=== PATIENT | male | born 1985 | race African-American/Black ===

== ENCOUNTER 2018-04-15 12:34 | Emergency (ER) | payer OTHER ==
[~2018-04-15] VITALS: Ht 188 cm; Wt 78.6 kg
--- NOTE | 2018-04-15 13:36 | REP ---
CT Head without contrast HISTORY: Trauma COMPARISON: 07/10/2014 There is no intraparenchymal hemorrhage, acute infarct, mass or midline shift. The ventricular system is normal in appearance. There is no extra cerebral collection. There is no fracture. The visualized sinuses are clear. IMPRESSION: There is no intracranial lesion. Electronically Signed by Dung Barrow MD 04/15/2018 01:28 P
--- NOTE | 2018-04-15 13:40 | REP ---
CT cervical spine without contrast HISTORY: Trauma COMPARISON: None There is no acute fracture or subluxation. Disc bulges are present at the C3-4 and C4-5 levels. A disc bulge with associated osteophyte formation is present at the C5-6 level. There is minimal narrowing of the spinal canal. Uncinate process hypertrophy is present at the C5-6 level. This produces mild narrowing of the C5 neural foramina. The remaining neural foramina are patent. The C5-6 intervertebral disc is decreased in height consistent with disc degeneration. IMPRESSION: 1. There is no acute fracture or subluxation. 2. There is cervical spondylosis at the C3-4 through C5-6 levels. Electronically Signed by Dung Barrow MD 04/15/2018 01:31 P
[2018-04-15] MEDS ORDERED: REGL10TA6 PO (13:42)
[2018-04-15 13:54] VITALS: BP 151/84
== END 2018-04-15 13:56 | disposition home or self-care (01) ==
LOC: M ED 12:34
DX: S06.0X0A Concussion without loss of consciousness, initial encounter (principal); W50.0XXA Accidental hit or strike by another person, initial encounter; Y92.89 Other specified places as the place of occurrence of the external cause; Y93.71 Activity, boxing; Y99.9 Unspecified external cause status; M47.812 Spondylosis without myelopathy or radiculopathy, cervical region

== ENCOUNTER 2018-08-01 14:10 | Emergency (ER) | payer OTHER ==
[~2018-08-01] VITALS: Ht 188 cm; Wt 81.8 kg
[~2018-08-01 14:10] MED LIST: REGL10TA6 PO
[2018-08-01 15:29] LABS: BASO % 0.2 % (0.0-1.0); EOS % 0.1 % (0.0-3.0); HEMOGLOBIN 14.3 g/dl (13.5-17.5); LYMPH # 2.2 10^3/uL (1.5-4.5); LYMPH % 12.1 % (24.0-44.0); MEAN CORPUSCULAR HEMOGLOBIN 29.2 pg (27.0-33.0); MEAN CORPUSCULAR HGB CONC 33.3 g/dl (32.0-36.5); MEAN CORPUSCULAR VOLUME 87.8 fl (80.0-96.0); MONO # 0.8 10^3/uL (0.0-0.8); MONO % 4.5 % (0.0-5.0); NEUTROPHILS % 82.6 % (36.0-66.0); PLATELET COUNT, AUTOMATED 275 10^3/uL (150-450); WHITE BLOOD COUNT 18.1 10^3/uL (4.0-10.0)
[2018-08-01] MEDS ORDERED: NS 1,000 ML IV ONE (15:30)
[2018-08-01] MEDS ORDERED: ONDANSETRON 4MG/2ML VIAL (J2405) IV ONE (15:30)
[2018-08-01 15:41] LABS: ALBUMIN 4.5 GM/DL (3.2-5.2); ALT/SGPT 38 U/L (12-78); BILIRUBIN,DIRECT 0.4 MG/DL (0.0-0.2); BILIRUBIN,TOTAL 1.5 MG/DL (0.2-1.0); BLOOD UREA NITROGEN 18 MG/DL (7-18); CALCIUM LEVEL 9.7 MG/DL (8.5-10.1); CARBON DIOXIDE LEVEL 25 MEQ/L (21-32); CHLORIDE LEVEL 104 MEQ/L (98-107); CREATININE FOR GFR 1.22 MG/DL (0.70-1.30); ETHYL ALCOHOL (ETHANOL) < 0.003 % (0.000-0.010); GLOMERULAR FILTRATION RATE > 60.0 (>60); GLUCOSE, FASTING 130 MG/DL (70-100); LIPASE 524 U/L (73-393); POTASSIUM SERUM 4.2 MEQ/L (3.5-5.1); SODIUM LEVEL 139 MEQ/L (136-145); TOTAL PROTEIN 8.1 GM/DL (6.4-8.2)
[2018-08-01 17:20] LABS: AMPHETAMINES LEVEL URINE NEGATIVE (NEGATIVE); BARBITURATES URINE NEGATIVE (NEGATIVE); BENZODIAZEPINES URINE NEGATIVE (NEGATIVE); CANNABINOIDS URINE POSITIVE (NEGATIVE); COCAINE METABOLITE URINE NEGATIVE (NEGATIVE); METHADONE URINE NEGATIVE (NEGATIVE); OPIATES URINE NEGATIVE (NEGATIVE); PHENCYCLIDINE URINE NEGATIVE (NEGATIVE)
[2018-08-01] MEDS ORDERED: ONDA4TAB6 PO (17:31)
[2018-08-01 17:42] VITALS: BP 120/61
== END 2018-08-01 17:58 | disposition home or self-care (01) ==
LOC: EDBD 14:10 → M ED 14:10
DX: R10.84 Generalized abdominal pain (principal); D72.829 Elevated white blood cell count, unspecified; F10.20 Alcohol dependence, uncomplicated; Y90.0 Blood alcohol level of less than 20 mg/100 ml; F12.20 Cannabis dependence, uncomplicated
CPT/HCPCS: 80048; 80076; 80307; 81001; 83690; 85025; 96374; 99284; G0480; J2405

== ENCOUNTER 2019-03-08 13:48 | Emergency (ER) | payer OTHER ==
[~2019-03-08] VITALS: Ht 188 cm; Wt 78.6 kg
[~2019-03-08 13:48] MED LIST changes: +ONDA4TAB6 PO
[2019-03-08] MEDS ORDERED: NS 1,000 ML IV ONE (14:30)
[2019-03-08] MEDS ORDERED: ONDANSETRON 4MG/2ML VIAL (J2405) IV ONE (14:30)
[2019-03-08] MEDS ORDERED: ZOFR4TAB16 PO (16:21)
[2019-03-08 17:19] VITALS: BP 131/72
== END 2019-03-08 17:20 | disposition home or self-care (01) ==
LOC: M ED 13:48
DX: R11.2 Nausea with vomiting, unspecified (principal); R19.7 Diarrhea, unspecified
CPT/HCPCS: 80047; 93041; 96361; 96374; 99284; J2405

== ENCOUNTER 2019-05-05 11:29 | Emergency (ER) | payer OTHER ==
[~2019-05-05] VITALS: Ht 188 cm; Wt 81.1 kg
[2019-05-05 11:29] VITALS: BP 134/77
[~2019-05-05 11:29] MED LIST changes: +ZOFR4TAB16 PO
== END 2019-05-05 12:36 | disposition left against medical advice (07) ==
LOC: M ED 11:29
DX: Z53.21 Procedure and treatment not carried out due to patient leaving prior to being seen by health care provider (principal)

== ENCOUNTER 2019-05-05 15:34 | Emergency (ER) | payer OTHER ==
[~2019-05-05] VITALS: Ht 188 cm; Wt 82.5 kg
[2019-05-05 15:34] VITALS: BP 160/70
[2019-05-05] MEDS ORDERED: DERMABOND TOPICAL SKIN ADHESIVE TOP ONE (16:30)
== END 2019-05-05 16:39 | disposition home or self-care (01) ==
LOC: M ED 16:23
DX: S61.011A Laceration without foreign body of right thumb without damage to nail, initial encounter (principal); W26.0XXA Contact with knife, initial encounter; Y92.59 Other trade areas as the place of occurrence of the external cause; Y93.89 Activity, other specified; Y99.0 Civilian activity done for income or pay

== ENCOUNTER 2020-10-24 14:48 | Emergency (ER) | payer OTHER ==
[~2020-10-24] VITALS: Ht 188 cm; Wt 82.1 kg
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
[2020-10-24 17:21] VITALS: BP 119/68
== END 2020-10-24 17:36 | disposition home or self-care (01) ==
LOC: M ED 14:48
DX: S02.2XXA Fracture of nasal bones, initial encounter for closed fracture (principal); R68.84 Jaw pain; Y04.2XXA Assault by strike against or bumped into by another person, initial encounter; Y92.9 Unspecified place or not applicable; Y93.71 Activity, boxing; Y99.8 Other external cause status; J32.9 Chronic sinusitis, unspecified

== ENCOUNTER → 2021-01-24 | Outpatient (CLI) | payer OTHER ==
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
== END ==
LOC: M PLAIMG 13:22
PROVIDERS: ATTEND Family Medicine Addiction Medicine
DX: S06.0X9A Concussion with loss of consciousness of unspecified duration, initial encounter (principal); Y92.9 Unspecified place or not applicable; Y93.9 Activity, unspecified; Y99.9 Unspecified external cause status

== ENCOUNTER 2021-06-01 10:11 | Emergency (ER) | payer OTHER ==
[~2021-06-01] VITALS: Ht 188 cm; Wt 75.0 kg
[2021-06-01] MEDS ORDERED: PANTOPRAZOLE 40MG VIAL (C9113 PER 1) IV ONE (11:55)
[2021-06-01] MEDS ORDERED: KETOROLAC 30 MG/ML 1ML VIAL IV ONE (11:55)
[2021-06-01] MEDS ORDERED: ONDANSETRON 4MG/2ML VIAL IV ONE (11:55)
[2021-06-01] MEDS ORDERED: NS 1,000 ML IV ONE ×2 (11:55→13:45)
[2021-06-01 12:52] LABS: BASO % 0.3 % (0.0-1.0); EOS % 0.3 % (0.0-3.0); HEMATOCRIT 43.1 % (42.0-52.0); HEMOGLOBIN 14.6 g/dl (13.5-17.5); LYMPH # 1.8 10^3/uL (1.5-5.0); LYMPH % 16.6 % (24.0-44.0); MEAN CORPUSCULAR HGB CONC 33.9 g/dl (32.0-36.5); MEAN CORPUSCULAR VOLUME 85.5 fl (80.0-96.0); MONO # 0.4 10^3/uL (0.0-0.8); MONO % 3.5 % (2.0-8.0); NEUTROPHILS # 8.5 10^3/uL (1.5-8.5); NEUTROPHILS % 78.8 % (36.0-66.0); PLATELET COUNT, AUTOMATED 251 10^3/uL (150-450); RED BLOOD COUNT 5.04 10^6/uL (4.30-6.10); WHITE BLOOD COUNT 10.8 10^3/uL (4.0-10.0)
[2021-06-01 12:57] LABS: ALBUMIN 4.4 GM/DL (3.2-5.2); ALT/SGPT 44 U/L (12-78); BILIRUBIN,DIRECT 0.2 MG/DL (0.0-0.2); BILIRUBIN,TOTAL 0.9 MG/DL (0.2-1.0); ETHYL ALCOHOL (ETHANOL) < 0.003 % (0.000-0.010); LIPASE 120 U/L (73-393)
[2021-06-01] MEDS ORDERED: METOCLOPRAMIDE INJ 10MG/2ML VIAL (J2765 PER 1) IV ONE (13:30)
[2021-06-01] MEDS ORDERED: ISOVUE-370 76% 100ML VIAL As Ordered ONE (13:36)
[2021-06-01 13:49] LABS: CK-MB VALUE MASS 1.8 NG/ML (<3.6); MB/CK RELATIVE INDEX 0.31 (< OR =4)
[2021-06-01 16:00] LABS: AMPHETAMINES LEVEL URINE NEGATIVE (NEGATIVE); BARBITURATES URINE NEGATIVE (NEGATIVE); BENZODIAZEPINES URINE NEGATIVE (NEGATIVE); CANNABINOIDS URINE POSITIVE (NEGATIVE); COCAINE METABOLITE URINE NEGATIVE (NEGATIVE); METHADONE URINE NEGATIVE (NEGATIVE); OPIATES URINE NEGATIVE (NEGATIVE); PHENCYCLIDINE URINE NEGATIVE (NEGATIVE)
[2021-06-01 18:00] VITALS: BP 131/82
== END 2021-06-01 18:19 | disposition home or self-care (01) ==
LOC: M ED 10:11 → EDBD 10:11 → M ED 18:19
DX: F12.188 Cannabis abuse with other cannabis-induced disorder (principal); F10.929 Alcohol use, unspecified with intoxication, unspecified; E86.0 Dehydration; F17.200 Nicotine dependence, unspecified, uncomplicated; R00.1 Bradycardia, unspecified; R74.8 Abnormal levels of other serum enzymes
CPT/HCPCS: 36415; 71045; 74177; 80047; 80076; 80307; 82077; 82550; 82553; 83690; 85025; 85379; 93005; 93041; 94760; 96361; 96374; 96375; 99285; C9113; J1885; J2405; J2765; Q9967